=== PATIENT | male | born 1945 | race Two or more races ===

== ENCOUNTER → 2020-07-02 15:00 | Outpatient (CLI) | payer OTHER | END | disposition home or self-care (01) | LOC: PPH VACUNA 15:00 | PROVIDERS: ATTEND Emergency Medicine Pediatric Emergency Medicine | DX: Z23 Encounter for immunization (principal) ==

== ENCOUNTER 2020-07-23 14:29 | Outpatient (CLI) | payer OTHER | END 2020-07-23 14:30 | disposition home or self-care (01) | LOC: PPH VACUNA 14:29 | PROVIDERS: ATTEND Emergency Medicine Pediatric Emergency Medicine | DX: Z23 Encounter for immunization (principal) ==

== ENCOUNTER 2021-02-10 12:44 | Outpatient (CLI) | payer OTHER | END 2021-02-10 12:48 | disposition home or self-care (01) | LOC: PPH VACUNA 12:44 | PROVIDERS: ATTEND Emergency Medicine Pediatric Emergency Medicine | DX: Z23 Encounter for immunization (principal) ==